=== PATIENT | female | born 1985 | race Caucasian/White ===

== ENCOUNTER 2022-06-08 20:35 | Day surgery (SDC) | payer OTHER ==
[~2022-06-08] VITALS: Ht 162.6 cm; Wt 81.9 kg
--- NOTE | ~2022-06-08 | CONS ---
[facility] [address], [place] [address] Draft DATE OF CONSULTATION: 06/08/2022 REQUESTING PHYSICIAN: HISTORY OF PRESENT ILLNESS: The patient is a 37-year-old female 6, para 0, SAB 2, VIP 3, who was diagnosed with a missed RADHA on May 29. size of the point was 6 weeks 1 day with no heart motion. Since then, she has been having bleeding off and on, which became quite heavy about six days ago. She had times where she passed very large clots. She reports changing her pads, however, only about three times a day. She has been feeling dizzy for about this last week, but it worsened today with a feeling of weakness and came to the ED for evaluation. H and H in the ED revealed H and H of 6.5 and 19.4. She had a documented hematocrit of 41 on May 23. PAST MEDICAL HISTORY: SURGERIES: Breast lift as a teenager. Hospitalizations otherwise negative. ILLNESSES: Negative for hypertension, diabetes, murmur, asthma, liver, kidney problems, migraines. MEDICATIONS: None. ALLERGIES: Penicillin with a rash. HABITS: Positive tobacco 1/2 pack per day for seven years. Positive for heavy alcohol use with drinking about five drinks at a time, six days a week. Negative for other drug use. OB HISTORY: VIP x3. History of SAB x2, though these were not confirmed by blood tests or ultrasound. PHYSICAL EXAMINATION: VITAL SIGNS: Blood pressure is 106/71, pulse 89, temperature 97.4. GENERAL: A well-developed, well-nourished female, in no acute distress. LUNGS: Clear. HEART: Regular rate and rhythm without murmur. ABDOMEN: With active bowel sounds. Soft, nontender, without hepatosplenomegaly. PELVIC: Deferred to the OR. On ultrasound, there was a moderate amount of fluid in the uterine cavity with a heterogeneous vascularized material consistent with retained products. PATIENT NAME: RIKI VEGA CONSULTATION DATE OF : 89 REPORT #: [id number] PHYSICIAN: CANDIDA SARMIENOT MD PCP: DANNI BANDA ([place]) DO REPORT IS CONFIDENTIAL AND NOT TO BE RELEASED WITHOUT AUTHORIZATION [facility] [address], [place] [address] Draft LABORATORY DATA: H and H are 6.5 and 19.4, white count 10.1, MCV is 100.3, platelets 333. She is receiving 1 unit of blood in the ER. Chem panel is remarkable for potassium of 2.7. IMPRESSION: Retained products with incomplete . Discussed the findings and recommend suction D and C for treatment, especially in the over prolonged course and her significant anemia. The risks of surgery including, but not limited to infection, bleeding, possible need for further treatment including further blood transfusion. She had no questions and requested no further information. She also has a history of smoker, heavy alcohol use, and hypokalemia. PLAN: Section D and C, . Candida Sarmiento MD PJW/MODL /[id number] Copies: ~ PATIENT NAME: RIKI VEGA CONSULTATION DATE OF : [birth year] REPORT #: [id number] PHYSICIAN: CANDIDA SARMIENTO MD PCP: DANNI BANDA ([place]) DO REPORT IS CONFIDENTIAL AND NOT TO BE RELEASED WITHOUT AUTHORIZATION
--- NOTE | ~2022-06-08 | OR ---
[facility] [address] [facility] [place], [place] [address] Draft DATE OF OPERATION: 06/09/2022 SURGEON: Candida Sarmiento MD PREOPERATIVE DIAGNOSIS: Incomplete . POSTOPERATIVE DIAGNOSIS: Incomplete . PROCEDURE: Suction D and C. ANESTHESIA: General ET. ESTIMATED BLOOD LOSS: 50 mL. DRAINS: None. INDICATIONS AND FINDINGS: The patient is a 37-year-old female 6, para 0, SAB 2, VIP 3, who was diagnosed with a missed AB on May 29. The baby at that point was 6 weeks 1 day size without heart motion. Several days later, she began bleeding and has been bleeding intermittently very heavily since then. She has had passage of large clots. She has seen no passage of tissue. She presented to the emergency room after feeling progressively weaker and more dizzy over the course of this last week. At the time of her admission, she was found to be severely anemic with a hematocrit of 20. In the course of her evaluation, she was found to have an incomplete AB with the cervix widely dilated and essentially the entire within the uterus. At the time of surgery, exam under anesthesia revealed a widely dilated cervix with a large amount of tissue within the uterus. DESCRIPTION OF PROCEDURE: The patient was prepped and draped in the dorsal lithotomy position. An open-sided speculum was placed. The anterior lip of the cervix was visualized and grasped with a single-tooth tenaculum. The cervix easily accepted #12 dilator. #9 suction curette was then introduced and suction curettage was done with removal of a large amount of tissue. PATIENT NAME: RIKI VEGA OPERATIVE REPORT DATE OF : [birth year] REPORT #: [id number] PHYSICIAN: CANDIDA SARMIENTO MD PCP: DANNI BANDA ([place]) DO REPORT IS CONFIDENTIAL AND NOT TO BE RELEASED WITHOUT AUTHORIZATION [facility] [address] [place] [id number] Draft Sharp curettage was then done with removal of a small amount of tissue. Suction curettage was repeated as was sharp curettage and the cavity felt clean and contracted. At that point, the procedure was terminated. She was having minimal bleeding at that point. The tenaculum was removed and there was no evidence of any bleeding from the tenaculum site. The procedure was then terminated. The patient was taken to the recovery room in good condition. All sponge and needle counts were correct. MD SUNNY Singh/MODL /[id number] Copies: ~ PATIENT NAME: RIKI VEGA OPERATIVE REPORT DATE OF : [birth year] REPORT #: [id number] PHYSICIAN: CANDIDA SARMIENTO MD PCP: DANNI BANDA ([place]) DO REPORT IS CONFIDENTIAL AND NOT TO BE RELEASED WITHOUT AUTHORIZATION
--- NOTE | 2022-06-09 00:35 | NUR ---
REPORT RECEIVED FROM STEVEN VEGA FROM THE ER. REPORT GIVEN OVER THE PHONE. THIS RN INFORMED PT IS IN THE OR AT THIS TIME. AWAITING CALL FROM PACU.
--- NOTE | 2022-06-09 01:22 | NUR ---
06/09/22 0122 Renetta Strange 0105-PATIENT ARRIVES TO PACU ON 6L VIA MASK. PATIENT IS AWAKE. DENIES PAIN AND NAUSEA. HOB ELEVATED. 0112-PATIENT IS AWAKE. RESP EVEN AND UNLABORED. DENIES PAIN AND NAUSEA. 0114-O2 TITRATED OFF. O2 SATS AT 100% ON RA. 0119-DR. HANSEN AT BEDSIDE. 0120-PATIENT AWAKE. RESP EVEN AND UNLABORED. DENIES PAIN AND NAUSEA. O2 SATS AT 100% ON RA.
--- NOTE | 2022-06-09 01:27 | NUR ---
THIS RN RECEIVED PHONE CALL FROM CULLEN IN SURGERY TO INFROM THIS RN THAT PT WILL BE COMING TO RM 116 SOON.
--- NOTE | 2022-06-09 01:40 | NUR ---
PT TO ROOM. REPORT RECEIVED FROM STEVEN BERMAN. PT ABLE TO TRANSFER SELF FROM STRETCHER TO BED WITH NO ISSUES. STEVEN BERMAN CHANGES PTs OSMANY PAD PRIOR TO TRANSFER OF BEDS. SMALL AMOUNT OF BLOOD NOTED TO PAD. PT DENIES NAUSEA OR FEELING DIZZY. PT DENIES PAIN AT THIS TIME. VITALS COMPLETE. ASSESSMENT COMPLETE. LUNG SOUNDS CLEAR. BOWEL TONES ACTIVE. NO NEW BLOOD NOTED TO NEW OSMANY PAD AT THIS TIME. IV IN RIGHT AC FLUSHES WNL. FLUIDS STARTED AND INFUSING WNL. IV IN LEFT AC FLUSHES WNL. PT DUE TO VOID AT THIS TIME. PT DENIES ANY OTHER NEEDS. CALL LIGHT IN REACH. PT VERBALIZES UNDERSTANDING TO USE CALL LIGHT IF PT NEEDS ANYTHING.
--- NOTE | 2022-06-09 02:01 | NUR ---
THIS RN CALLED DR. HANSEN TO VERIFY ORDERS. UPDATED ODERS. NEW ORDERS VERIFIED WITH READBACK.
--- NOTE | 2022-06-09 02:18 | NUR ---
IN TO ADMINISTER MEDICATION, SEE MAR. GAG REFLEX TESTED PRIOR TO ADMINISTRATION OF PO MEDICATIONS. GAG REFLEX INTACT. PT ABLE TO COUGH WHEN ASKED. PT TOLERATED DRINKING SIP OF WATER. PT TOLERATED PO MEIDCATIONS WITH NO ISSUES. PT DENIES ANY OTHER NEEDS AT THIS TIME. CALL LIGHT IN REACH.
--- NOTE | 2022-06-09 02:48 | NUR ---
IN ROOM TO COMPLETE VITALS. STEVEN ROMERO IN ROOM ASSISTING PT TO RESTROOM. VITALS AND I&Os COMPLETE. PT DENEIS ANY PAIN AT THIS TIME. NO OTHER NEEDS REPORTED. CALL LIGHT IN REACH. BROTHER IN ROOM.
--- NOTE | 2022-06-09 02:58 | NUR ---
pt UP SBA TO VOID, STEADY ON FEET. pt VOIDED 600MLS URINE-BLOOD TINGED IN COLOR WITH SMALL CLOTS X2. NO BLOOD NOTED ON OSMANY PAD AT TIME OF VOID. NEW OSMANY PAD [facility] MANAGER LEAN. pt REPORTS MINIMAL DIZZINESS AFTER GETTING BACK TO BED, VSS. WILL MONITOR. IV FLUIDS INFUSING, CALL LIGHT IN REACH. BROTHER IN ROOM AND TO DRIVE pt HOME FOLLOWING DISCHARGE.
--- NOTE | 2022-06-09 03:07 | NUR ---
JELLO AND FRESH ICE WATER PROVIDED, NO ADDITIONAL NEEDS OR CONCERNS VERBALIZED.
--- NOTE | 2022-06-09 03:43 | NUR ---
DISCUSSED WITH ACCESS SERVICES ASSISTANT CARMEN REGARDING MEDICATION METHERGINE IN EMAR-STOCK MED. PER CARMEN, NO NEED TO CALL MD MED IS GIVEN IN OR PRN. PRIMAY STEVEN LOCK UPDATED. pt HAS PRESCRIPTION FOR NORCO AND MOTRIN FOR PAIN CONTROL. PHARMACY UNAVAILABLE AT THIS TIME, DISCUSSED WITH pt. pt CURRENTLY DENIES PAIN, RATES 0/10. TOLERATING AMBULATING IN ROOM. pt REPORTS SHE HAS MOTRIN (IBUPROFEN) AT HOME AND CAN USE THAT UNTIL PHARMACY OPENS, pt DENIES NEED FOR PRN NORCO BEFORE DISCHARGE WHEN ASKED. PRIMARY STEVEN LOCK IN ROOM TO COMPLETE DISCHARGE INSTRUCTIONS.
--- NOTE | 2022-06-09 03:44 | NUR ---
IN ROOM TO COMPLETE VITALS. PT AMBULATES FROM BED TO RESTROOM AND BACK TO BED. PT DENEIS ANY LIGHTHEADEDNESS OR DIZZINESS WITH AMBULATION. PT DENIES ANY PAIN AT THIS TIME NO BLOOD NOTED TO OSMANY PAD. LIGHT PINK/YELLOW URINE OUTPUT WITH NO CLOTS NOTED. IV REMOVED FROM R AC WNL. IV REMOVED FROM L AC WNL. DISCHARGE PACKET PROVIDED. DISCHARGE EDUCATION PROVIDED. PT DENIES ANY QUESTIONS. RX HANDED TO PT AND IN PTs BELONGINGS BAG. 0358 PT DRESSES SELF. THIS RN WHEELED PT TO PTs BROTHER'S VEHICLE. PT AMBULATES FROM WHEELCHAIR TO CAR WITH NO ISSUES.
== END 2022-06-09 03:58 | disposition home or self-care (01) ==
LOC: ED 20:35 → DS 23:56 → MS 23:57 → DS 06-09 03:58
PROVIDERS: ATTEND Obstetrics & Gynecology
PROC: 10D17ZZ Extraction of Products of Conception, Retained, Via Natural or Artificial Opening (ICD-10-PCS; principal; 2022-06-09 00:12)
DX: O03.4 Incomplete spontaneous abortion without complication (principal); Z88.0 Allergy status to penicillin
CPT/HCPCS: 36415; 76801; 76817; 80053; 84702; 85025; 86850; 86900; 86901; 86922; A9270; J0330; J0690; J1100; J1885; J2250; J2405; J2704; J3010; J3480; J7121; P9016

== ENCOUNTER 2024-01-03 23:03 | Emergency (ER) | payer OTHER ==
[~2024-01-03] VITALS: Ht 162.6 cm; Wt 82.7 kg
[2024-01-03] MEDS ORDERED: diazePAM 10 MG/2 ML SYR IV ONE (23:30)
[2024-01-03] MEDS ORDERED: KETOROLAC TROMETHAMINE 30 MG/ML VIAL IV ONE (23:30)
[2024-01-03] MEDS ORDERED: LACTATED RINGER'S 1,000 ML IV ONE (23:45)
[2024-01-03 23:49] LABS: BASOPHILS 1.4 % (0-2); EOSINOPHILS 1.7 % (0-6); HEMATOCRIT 39.9 % (35.0-50.0); HEMOGLOBIN 13.7 g/dL (12.0-18.0); LYMPHOCYTES 45.2 % (24-44); MCHC 34.4 g/dl (30-36); MCV 98.6 fl (81-99); MONOCYTES 8.8 % (0-12); NEUTROPHILS 42.9 % (39-80); PLATELET COUNT 289 K/uL (140-440); RBC 4.04 M/ul (4.3-5.7); RDW 12.3 (10.5-15.0)
[2024-01-04 00:03] LABS: ALBUMIN 3.7 g/dL (3.4-5.0); ALBUMIN/GLOBULIN RATIO 1.03 (1.1-2.4); ANION GAP 13.7 (7-21); BILIRUBIN, TOTAL 0.2 ng/dL (0.2-1.0); BUN/CREATININE RATIO 6.57 (6.0-28.6); CREATININE, SERUM 0.76 mg/dL (0.55-1.02); MAGNESIUM 1.9 mg/dL (1.8-2.4); POTASSIUM 3.7 mmol/L (3.5-5.1); PROTEIN, TOTAL 7.3 g/dL (6.4-8.2)
[2024-01-04 00:20] LABS: INFLUENZA B NAA NEGATIVE (NEGATIVE); RESPIRATORY SYNCYTIAL VIR NAA NEGATIVE (NEGATIVE)
[2024-01-04] MEDS ORDERED: CYCLOBENZAPRINE10 MG PO (00:54)
[2024-01-04 01:00] VITALS: BP 112/78
== END 2024-01-04 01:00 | disposition home or self-care (01) ==
LOC: ED 23:03
PROVIDERS: Family Medicine
DX: R51.9 Headache, unspecified (principal); Z88.0 Allergy status to penicillin; Z11.52 Encounter for screening for COVID-19
CPT/HCPCS: 36415; 80053; 83735; 85025; 87502; 96374; 96375; 99284-25; J1885; J3360; J7121; U0002

== ENCOUNTER 2025-04-15 05:21 | Emergency (ER) | payer OTHER ==
[~2025-04-15] VITALS: Ht 162.6 cm; Wt 79.4 kg
[~2025-04-15 05:21] MED LIST: CYCLOBENZAPRINE10 MG PO
== END 2025-04-15 06:48 | disposition home or self-care (01) ==
LOC: ED 05:21
DX: F14.10 Cocaine abuse, uncomplicated (principal); Z79.899 Other long term (current) drug therapy; Z88.0 Allergy status to penicillin
CPT/HCPCS: 99283